=== PATIENT | female | born 1975 | race Caucasian/White ===

== ENCOUNTER 2018-01-10 11:36 | Emergency (ER) | payer MEDICAID ==
[2018-01-10] MEDS ORDERED: KETOROLAC TROMETHAMINE 60 MG/2 ML SDV IM ONE (12:33)
[2018-01-10] MEDS ORDERED: DEXAMETHASONE SOD PHOS INJ 10 MG/1 ML VIAL IM ONE (12:33)
--- NOTE | 2018-01-10 12:40 | ER Document Report ---
ED Neck/Back Problem - General Chief Complaint: Low Back Pain Stated Complaint: BACK PAIN Time Seen by Provider: 01/10/18 12:16 Mode of Arrival: Ambulatory Information source: Patient Notes: 42-year-old female presents to ED for complaint of worsening back pain. She has chronic back pain and had an epidural shot about a week and a half ago because of a herniated disc and arthritis. She states she also has a history of fibromyalgia and depression and anxiety. She states the pain in her back is been worse ever since she got the shot. She also went to her primary care doctor and got oxycodone 10 mg 15 of him on 06 January. She did not tell me that when I assessed her and found that on the pharmacy workup. She also filled her Ativan at the same time. Patient does go to pain management for her chronic back pain. He denies any new injuries. She denies any loss control of her bowel or bladder. She states she has some numbness to her buttocks and that the pain is making it so is harder for her to walk. She does have a nerve stimulator that she had on her back. TRAVEL OUTSIDE OF THE [place] IN LAST 30 DAYS: No - HPI Patient complains to provider of: Pain, Lower back Onset: Other - Chronic as for the last week and half since she got an epidural Onset: Chronic Quality of pain: Sharp, Throbbing Severity: Severe Pain Level: 5 Context: Bending, Lifting, Other Recent injury: No - Walking Associated symptoms: Like prior neck/back pain, Numbness/tingling, Radiation to leg, Lower back pain. denies: Constipation, Fever, Incontinence, Motor loss, Radiation to arm, Radiation to chest, Sensory loss, Sweaty, Unable to urinate, Upper back pain Exacerbated by: Movement of trunk, Sitting position Relieved by: Nothing Similar symptoms previously: Yes Recently seen / treated by doctor: Yes - Related Data Allergies/Adverse Reactions: aspirin Allergy (Verified 01/10/18 11:40) Penicillins Allergy (Verified 01/10/18 11:40) tramadol Allergy (Verified 01/10/18 11:40) Past Medical History - General Information source: Patient - Social History Smoking Status: Current Every Day Smoker Cigarette use (# per day): Yes - Half pack per day Chew tobacco use (# tins/day): No Smoking Education Provided: Yes Frequency of alcohol use: Rare Drug Abuse: None Occupation: None Lives with: Alone - Lives alone with her daughter Family History: Arthritis, CAD, DM, Hyperlipidemia, Hypertension, Malignancy. denies: COPD, CVA, Thyroid Disfunction Patient has suicidal ideation: No Patient has homicidal ideation: No - Past Medical History Cardiac Medical History: Reports: None Pulmonary Medical History: Reports: None EENT Medical History: Reports: None Neurological Medical History: Reports: None Endocrine Medical History: Reports: None Renal/ Medical History: Reports: None Malignancy Medical History: Reports: None GI Medical History: Reports: None Musculoskeltal Medical History: Reports Hx Arthritis, Reports Hx Musculoskeletal Deformity Skin Medical History: Reports None Psychiatric Medical History: Reports: Hx Anxiety, Hx Depression Traumatic Medical History: Reports: None Infectious Medical History: Reports: None Surgical Hx: Negative Past Surgical History: Reports: None Review of Systems - Review of Systems Constitutional: No symptoms reported EENT: No symptoms reported Cardiovascular: No symptoms reported Respiratory: No symptoms reported Gastrointestinal: No symptoms reported Genitourinary: No symptoms reported Female Genitourinary: No symptoms reported Musculoskeletal: Back pain, Muscle pain, Muscle stiffness Skin: No symptoms reported Hematologic/Lymphatic: No symptoms reported Neurological/Psychological: No symptoms reported -: Yes All other systems reviewed and negative Physical Exam - Vital signs Vitals: Temp Pulse Resp BP Pulse Ox 98.5 F 82 16 113/66 100 01/10/18 11:49 01/10/18 11:49 01/10/18 11:49 01/10/18 11:49 01/10/18 11:49 Interpretation: Normal - General General appearance: Appears well, Alert - HEENT Head: Normocephalic, Atraumatic Eyes: Normal Pupils: PERRL - Respiratory Respiratory status: No respiratory distress Chest status: Nontender Breath sounds: Normal Chest palpation: Normal - Cardiovascular Rhythm: Regular Heart sounds: Normal auscultation Murmur: No - Abdominal Inspection: Normal Distension: No distension Bowel sounds: Normal Tenderness: Nontender Organomegaly: No organomegaly - Back Back: Normal, Tender, Vertebra tenderness, Other - All puncture wound to the left side of the lumbar spine. Patient states this is where she got her epidural is not in the area where an epidural would be given. Has full sensation to her back buttocks.. No: Deformity/step-off, CVA tenderness, Scars , Scoliosis, Wounds Notes: No signs or symptoms of cauda equina, no loss control of bowel bladder, no loss of control of lower extremities. She does states she has increase in pain when she walks but she is able to walk. No saddle anesthesia, no loss of sensation to the lower extremities. She states sometimes she does have numbness and tingling to her buttocks but she is able to feel all palpation to her buttocks unable to tell whether it is sharp or dull. - Extremities General upper extremity: Normal inspection, Nontender, Normal color, Normal ROM , Normal temperature General lower extremity: Normal inspection, Nontender, Normal color, Normal ROM , Normal temperature, Normal weight bearing. No: Krystal's sign - Neurological Neuro grossly intact: Yes Cognition: Normal Orientation: AAOx4 [place] Coma Scale Eye Opening: Spontaneous [place]h Coma Scale Verbal: Oriented [place] Coma Scale Motor: Obeys Commands [place] Coma Scale Total: 15 Speech: Normal Motor strength normal: LUE, RUE, LLE, RLE Sensory: Normal - Psychological Associated symptoms: Normal affect, Normal mood - Skin Skin Temperature: Warm Skin Moisture: Dry Skin Color: Normal Course - Re-evaluation Re-evalutation: 01/10/18 12:42 Patient states she had an epidural a week and half ago. She states the pain to her back is been worse since this epidural. She is goes to pain management who is who put the epidural in her back. She states she has called pain management several times. She states the first time they told her that she needed to wait 7 days it has been a 7 days she called again and they told her they would get back with her either today or tomorrow. She went to her primary care doctor on 06 January and got 15 oxycodone 10 mg. When I first examined her she told me she was not on any narcotics and had not had any narcotics. Then after I asked her about these medications that I saw on her pharmacy she states she has but she only takes them when she absolutely has to. She is also taken Ativan for her anxiety and depression. She states she is also taken Prozac but I did not see that on her pharmacy list. I consulted Dr. Mullen for her history and physical. He came and examined her to ensure that she did not have a spinal abscess due to the epidural. Patient did not tell me ahead of time that she just had an MRI a month ago. Patient was examined by Dr. Mullen and he stated no that the chances were slumped for an abscess. Patient was treated with the Toradol and Decadron IM and will be discharged home to follow-up with her primary doctor. - Vital Signs Vital signs: Temp Pulse Resp BP Pulse Ox 98.9 F 79 16 102/52 L 97 01/10/18 12:58 01/10/18 12:58 01/10/18 12:58 01/10/18 12:58 01/10/18 12:58 Discharge - Discharge Clinical Impression: Chronic back pain greater than 3 months duration Low back pain Qualifiers: Chronicity: chronic Back pain laterality: bilateral Sciatica presence: with sciatica Sciatica laterality: bilateral sciatica Qualified Code(s): M54.42 - Lumbago with sciatica, left side Condition: Stable Disposition: HOME, SELF-CARE Additional Instructions: LOW BACK PAIN: Three out of every four people will have an episode of disabling back pain during their lifetime. Most commonly the pain is due to straining of the muscles and ligaments in the low back. Usual treatment includes: (1) Rest on a firm surface. Avoid lying on your stomach. (2) Ice pack the painful area. After a few days, gentle heat may be used intermittently to relax the area, or ice packs can be continued. (3) Medication may be needed -- muscle relaxers and antiinflammatory medicines are commonly used. (4) As the back improves, exercises are prescribed to strengthen the back and abdominal muscles. Your doctor will advise you on the proper care for your back at each stage in your recovery. You may be better in a few days -- or healing may take several weeks. If new symptoms of a "herniated disc" (radiation of pain, numbness, or tingling down the back of the leg or weakness in the leg) occur, you should be re-examined. Further testing may be necessary. Chronic Pain Control Stress, inactivity, and depression make pain more severe regardless of the cause of the pain. Stress and poor physical condition can cause pain such as headaches and backache. Relaxation: Rest in a quiet place with your eyes closed for 20 minutes twice daily. Concentrate on a pleasant image, or simply "feel" your breathing. Clear your mind. Stress management: Deal with your "stressors." Either take action, or eliminate the stressor from your life. Don't let things hang over you. Accept those things you can't change. Nutrition: Eat small, balanced meals -- don't skip, don't overeat. Meals should be high-carbohydrate, low-sugar, low-fat. Exercise: Exercise helps painful conditions and eases stress. Get 30 minutes of moderate exercise, five days a week. Do an activity that does not flare your pain. Precautions: Pain which continues to disrupt daily activities, or which changes in nature, requires a medical evaluation. Pain Clinic referral is available. We do not manage chronic pain in the Emergency Department. We will try to appropriately help you through an acute flare of your chronic painful condition , but for on-going chronic pain that does not improve, you will need to see your private doctor or friction paint machine tender. We do not provide repeated medication management of chronic painful conditions. If you wish, we can provide the name of local pain management physicians. ICE PACKS: Apply ice packs frequently against the painful area. Many different schedules are recommended, such as "20 minutes on, 20 minutes off" or "one hour ice, two hours rest." If you need to work, you may need to go longer between ice treatments. You should plan to have the area ice packed AT LEAST one fourth of the time. The ice should be applied over the wrap, tape, or splint, or over a layer of cloth -- not directly against the skin. Some ice bags have a built-in cloth and can be put directly on the skin. WARM PACKS: After approximately two days, apply gentle heat (such as a heating pad or hot water bottle) for about 20 to 30 minutes about every two hours -- at least four times daily. Warmth and elevation will help you make a more rapid recovery , and will ease the pain considerably. Do not use HOT heat, and never apply heat for longer than 30 minutes. The continuous heat can invisibly damage skin and muscles -- even when no burn is seen on the surface. Damaged muscles can make you MORE sore. Toradol Injection You have been given an injection of ketorolac tromethamine (Toradol). This is an excellent, safe drug for pain control. It also has potent antiinflammatory action. You should have significant pain relief within about one hour. Toradol is not addicting and is non-sedating. It does not interfere with driving or work. Call or return if you develop itching, hives, shortness of breath, or rash. STEROID MEDICATION: You have been given an injection of medicine of the cortisone/steroid class. This medication is used to control inflammation or allergy. It is often continued as a pill for a short period of time, until the acute process subsides. There are usually no side effects from short-term use of cortisone-like medications. Some persons feel an increased sense of well-being and are not sleepy at bedtime. Long-term use of cortisone medications is best avoided, unless required for a severe condition. If your condition does not remit, or relapses after the course of corticosteroid medication, you should consult your physician. Stretching Exercises for the Back The physician has recommended that you begin stretching exercises for your back. These are often used even while the back is painful. However, you should notify the physician if the activities seem to increase your pain. PELVIC TILT: Lie flat on your back with knees bent. Tighten your stomach and buttock muscles so it flattens your lower back against the floor. Hold 10 seconds. Repeat 10 times, twice daily. KNEE RAISE: Lying on the back with knees bent, raise one knee to your chest, then the other. Hold both knees against the chest 10 seconds, then lower one knee at a time. Repeat 10 times, twice daily. PARTIAL TRUNK RAISE: Lie face down, arms at your sides. Keeping your waist on the floor, use your arms raise your chest up. Support yourself on your elbows for 30 seconds. Repeat twice daily, increasing the time to two minutes as you recover. FOLLOW-UP CARE: If you have been referred to a physician for follow-up care, call the physician s office for an appointment as you were instructed or within the next two days. If you experience worsening or a significant change in your symptoms, notify the physician immediately or return to the Emergency Department at any time for re-evaluation. Referrals: HAMZAH WEEKS PA-C [Primary Care Provider] - Follow up tomorrow
[2018-01-10 13:00] VITALS: BP 102/52
== END 2018-01-10 13:00 | disposition home or self-care (01) ==
LOC: ER 11:36
DX: G89.29 Other chronic pain (principal); M54.42 Lumbago with sciatica, left side; M54.41 Lumbago with sciatica, right side; M19.90 Unspecified osteoarthritis, unspecified site; F32.9 Major depressive disorder, single episode, unspecified; F41.9 Anxiety disorder, unspecified; Z79.899 Other long term (current) drug therapy; Z96.89 Presence of other specified functional implants; F17.210 Nicotine dependence, cigarettes, uncomplicated; Z88.6 Allergy status to analgesic agent; Z88.0 Allergy status to penicillin; Z88.5 Allergy status to narcotic agent; Z98.890 Other specified postprocedural states
CPT/HCPCS: 99283; 96372; J1885; J1100

== ENCOUNTER 2018-04-16 18:02 | Emergency (ER) | payer MEDICAID ==
--- NOTE | 2018-04-16 18:34 | ER Document Report ---
ED Medical Screen (RME) - General Chief Complaint: Abdominal cramping/ Stated Complaint: ABDOMINAL PAIN Time Seen by Provider: 04/16/18 18:23 Notes: 43-year-old female patient, LMP 03/12/2018, had a serum hCG on 04/09/2000 1773, on 04/11/2018 of 197. Having lower abdominal discomfort. Sent here for ultrasound. I have greeted and performed a rapid initial assessment of this patient. A comprehensive ED assessment and evaluation of the patient, analysis of test results and completion of the medical decision making process will be conducted by additional ED providers. TRAVEL OUTSIDE OF THE [place] IN LAST 30 DAYS: No - Related Data Allergies/Adverse Reactions: aspirin Allergy (Verified 01/10/18 11:40) Penicillins Allergy (Verified 01/10/18 11:40) tramadol Allergy (Verified 01/10/18 11:40) Past Medical History - Social History Chew tobacco use (# tins/day): No Frequency of alcohol use: None Drug Abuse: None Renal/ Medical History: Denies: Hx Peritoneal Dialysis Musculoskeltal Medical History: Reports Hx Arthritis, Reports Hx Musculoskeletal Deformity Psychiatric Medical History: Reports: Hx Anxiety, Hx Depression Physical Exam - Vital signs Vitals: Temp Pulse Resp BP Pulse Ox 98.7 F 76 18 136/77 H 99 04/16/18 18:11 04/16/18 18:11 04/16/18 18:11 04/16/18 18:11 04/16/18 18:11 Course - Vital Signs Vital signs: Temp Pulse Resp BP Pulse Ox 98.7 F 76 18 136/77 H 99 04/16/18 18:11 04/16/18 18:11 04/16/18 18:11 04/16/18 18:11 04/16/18 18:11 Doctor's Discharge - Discharge Referrals: HAMZAH WEEKS PA-C [Primary Care Provider] - Follow up as needed
[2018-04-16 19:24] LABS: ABSOLUTE EOSINOPHILS # (AUTO) 0.2 10^3/uL (0.0-0.6); ABSOLUTE LYMPHOCYTES (AUTO) 3.1 10^3/uL (0.5-4.7); ABSOLUTE MONOCYTES (AUTO) 0.8 10^3/uL (0.1-1.4); BASOPHILS % (AUTO) 0.3 % (0-2); EOSINOPHILS % (AUTO) 1.4 % (0-6); HEMOGLOBIN 10.8 g/dL (12.0-15.5); LYMPHOCYTES % (AUTO) 27.8 % (13-45); MEAN CORPUSCULAR HEMOGLOBIN 29.3 pg (27.0-33.4); MEAN CORPUSCULAR HGB CONC 33.7 g/dL (32.0-36.0); MEAN CORPUSCULAR VOLUME 87 fl (80-97); MONOCYTES % (AUTO) 7.3 % (3-13); PLATELET COUNT 491 10^3/uL (150-450); RED BLOOD COUNT 3.68 10^6/uL (3.72-5.28); RED CELL DISTRIBUTION WIDTH 16.7 % (11.5-14.0); SEGMENTED NEUTROPHILS % (AUTO) 63.2 % (42-78); TOTAL CELLS COUNTED % (AUTO) 100 %; WHITE BLOOD COUNT 11.1 10^3/uL (4.0-10.5)
--- NOTE | 2018-04-16 20:31 | ER Document Report ---
ED General - General Chief Complaint: Abdominal cramping/ Stated Complaint: ABDOMINAL PAIN Time Seen by Provider: 04/16/18 18:23 Mode of Arrival: Ambulatory Information source: Patient Notes: 43-year-old female with depression, anxiety presents with complaint of abdominal cramping that started 3 days prior to arrival. She describes it as intermittent, located in the right and left lower quadrant. Patient had a recent positive test. She is with her last menstrual period . Patient admits to associated vaginal discharge without vaginal bleeding. She was recently seen at the health department but advised to come to the emergency department for an ultrasound. TRAVEL OUTSIDE OF THE [place] IN LAST 30 DAYS: No - HPI Onset: Other Onset/Duration: Gradual, Intermittent Quality of pain: Achy, Cramping Severity: Mild - Related Data Allergies/Adverse Reactions: aspirin Allergy (Verified 01/10/18 11:40) Penicillins Allergy (Verified 01/10/18 11:40) tramadol Allergy (Verified 01/10/18 11:40) Past Medical History - General Information source: Patient - Social History Smoking Status: Current Every Day Smoker Cigarette use (# per day): Yes - 5 Chew tobacco use (# tins/day): No Smoking Education Provided: Yes Frequency of alcohol use: None Drug Abuse: None Lives with: Family Family History: Arthritis, CAD, DM, Hyperlipidemia, Hypertension, Malignancy. denies: COPD, CVA, Thyroid Disfunction Patient has suicidal ideation: No Patient has homicidal ideation: No Renal/ Medical History: Denies: Hx Peritoneal Dialysis Musculoskeltal Medical History: Reports Hx Arthritis, Reports Hx Musculoskeletal Deformity Psychiatric Medical History: Reports: Hx Anxiety, Hx Depression Review of Systems - Review of Systems Constitutional: denies: Fever, Weakness EENT: denies: Blurred vision, Difficulty swallowing Cardiovascular: denies: Chest pain, Palpitations Respiratory: denies: Short of breath Gastrointestinal: Abdominal pain. denies: Nausea, Vomiting Genitourinary: denies: Dysuria Female Genitourinary: Last menstrual period - 03/12/18, Vaginal discharge. denies: Vaginal bleeding Musculoskeletal: denies: Muscle stiffness Skin: denies: Rash Hematologic/Lymphatic: denies: Easy bruising Neurological/Psychological: denies: Headaches -: Yes All other systems reviewed and negative Physical Exam - Vital signs Vitals: Temp Pulse Resp BP Pulse Ox 98.7 F 76 18 136/77 H 99 04/16/18 18:11 04/16/18 18:11 04/16/18 18:11 04/16/18 18:11 04/16/18 18:11 - Notes Notes: PHYSICAL EXAMINATION: GENERAL: Well-appearing, well-nourished and in no acute distress. HEAD: Atraumatic, normocephalic. EYES: Pupils equal round and reactive to light, extraocular movements intact, conjunctiva are normal. ENT: Nares patent, oropharynx clear without exudates. Moist mucous membranes. NECK: Normal range of motion, supple without lymphadenopathy LUNGS: Breath sounds clear to auscultation bilaterally and equal. No wheezes rales or rhonchi. HEART: Regular rate and rhythm without murmurs ABDOMEN: Soft, nontender, nondistended abdomen. No guarding, no rebound. No masses appreciated. Female : Thick white discharge, no vaginal bleeding, Os closed. No cervical motion tenderness. Musculoskeletal: Normal range of motion, no pitting or edema. No cyanosis. NEUROLOGICAL: Cranial nerves grossly intact. Normal speech, normal gait. Normal sensory, motor exams PSYCH: Normal mood, normal affect. SKIN: Warm, Dry, normal turgor, no rashes or lesions noted. Course - Re-evaluation Re-evalutation: Laboratory 04/16/18 04/16/18 04/16/18 19:00 19:00 20:43 WBC 11.1 H RBC 3.68 L Hgb 10.8 L Hct 32.0 L MCV 87 MCH 29.3 MCHC 33.7 RDW 16.7 H Plt Count 491 H Seg Neutrophils % 63.2 Lymphocytes % 27.8 Monocytes % 7.3 Eosinophils % 1.4 Basophils % 0.3 Absolute Neutrophils 7.0 Absolute Lymphocytes 3.1 Absolute Monocytes 0.8 Absolute Eosinophils 0.2 Absolute Basophils 0.0 Beta HCG, Quant 1863.90 H Total Beta HCG POSITIVE Urine Color YELLOW Urine Appearance SLIGHTLY-CLOUDY Urine pH 5.0 Ur Specific [place] 1.017 Urine Protein NEGATIVE Urine Glucose (UA) NEGATIVE Urine Ketones NEGATIVE Urine Blood NEGATIVE Urine Nitrite NEGATIVE Urine Bilirubin NEGATIVE Urine Urobilinogen NEGATIVE Ur Leukocyte Esterase NEGATIVE Urine WBC (Auto) 2 Urine RBC (Auto) 1 Squamous Epi Cells Auto 2 Urine Mucus (Auto) RARE Urine Ascorbic Acid NEGATIVE Trichomonas (Wet Prep) Vaginal WBC Vaginal Yeast Chlamydia DNA (PCR) N.gonorrhoeae DNA (PCR) 04/16/18 04/16/18 21:12 21:12 WBC RBC Hgb Hct MCV MCH MCHC RDW Plt Count Seg Neutrophils % Lymphocytes % Monocytes % Eosinophils % Basophils % Absolute Neutrophils Absolute Lymphocytes Absolute Monocytes Absolute Eosinophils Absolute Basophils Beta HCG, Quant Total Beta HCG Urine Color Urine Appearance Urine pH Ur Specific [place] Urine Protein Urine Glucose (UA) Urine Ketones Urine Blood Urine Nitrite Urine Bilirubin Urine Urobilinogen Ur Leukocyte Esterase Urine WBC (Auto) Urine RBC (Auto) Squamous Epi Cells Auto Urine Mucus (Auto) Urine Ascorbic Acid Trichomonas (Wet Prep) NO TRICHOMONAS SEEN Vaginal WBC RARE WBCS SEEN Vaginal Yeast NO YEAST SEEN Chlamydia DNA (PCR) NOT DETECTED N.gonorrhoeae DNA (PCR) NOT DETECTED Obstetrics Ultrasound 04/16/18 18:32 IMPRESSION: There may be an early intrauterine gestation of 5 weeks 2 days based on gestational sac size. pole was not seen. Follow-up as clinically indicated. 04/17/18 19:04 43-year-old female with depression, anxiety presents with complaint of abdominal cramping that started 3 days prior to arrival. She describes it as intermittent, located in the right and left lower quadrant. Patient had a recent positive test. She is with her last menstrual period . Patient admits to associated vaginal discharge without vaginal bleeding. She was recently seen at the health department but advised to come to the emergency department for an ultrasound. Patient was seen by myself upon arrival. Vital signs were reviewed. Patient is afebrile, normotensive and not hypoxic. Patient does not appear toxic or dehydrated. They are in no acute distress. Previous medical records and nursing notes reviewed. Patient has a normal pelvic exam without vaginal bleeding, os closed. Patient's hCG level 1863. Transvaginal ultrasound indicates a possible IUP approximately 5 weeks based on gestational sac size. Patient advised to return in 48 hours for repeat hCG level. She was urged to return sooner if she experienced worsening pain, vaginal bleeding. Patient provided the opportunity to ask questions, and express concerns. Discharge instructions discussed. Patient is agreeable with discharge home. Return indications explained and discussed with the patient who displays understanding. Patient encouraged to return to the emergency department immediately with any concerns. 04/17/18 19:10 - Vital Signs Vital signs: Temp Pulse Resp BP Pulse Ox 98.4 F 74 18 113/68 98 04/16/18 22:29 04/16/18 22:29 04/16/18 22:29 04/16/18 22:29 04/16/18 22:29 - Laboratory Result Diagrams: 04/16/18 19:00 Laboratory results interpreted by me: 04/16/18 04/16/18 19:00 19:00 WBC 11.1 H RBC 3.68 L Hgb 10.8 L Hct 32.0 L RDW 16.7 H Plt Count 491 H Beta HCG, Quant 1863.90 H - Diagnostic Test Radiology reviewed: Image reviewed, Reports reviewed Discharge - Discharge Clinical Impression: Pelvic pain affecting in first trimester, antepartum Condition: Good Disposition: HOME, SELF-CARE Instructions: Pelvic Pain in ([facility]) Additional Instructions: Please return to the emergency department for repeat hCG on April 18, 2018. Forms: Elevated Blood Pressure, Follow-Up Laboratory Testing Referrals: HAMZAH WEEKS PA-C [Primary Care Provider] - Follow up as needed
[2018-04-16] MEDS ORDERED: ENOXAPARIN SODIUM INJ 80 MG/0.8 ML DISP.SYRIN SUBCUT ONE (20:33)
--- NOTE | 2018-04-16 20:51 | RADIOLOGY REPORT (SQ) ---
EXAM DESCRIPTION: U/S OB TRANSVAGINAL W/O DOP COMPLETED DATE/TIME: 04/16/2018 8:31 pm REASON FOR STUDY: LMP 03-12-18, HCG 197 on 04-11-18, lower abdom pain COMPARISON: None. TECHNIQUE: Transvaginal static and realtime grayscale images acquired of the pelvis. Additional jonny cted spectral and color Doppler images recorded. All images stored on PACs. [facility] [place]: 5 weeks 0 days. LMP 03/12/2018 LIMITATIONS: None. FINDINGS: FETUS: Living intrauterine . ULTRASOUND EGA: 5 weeks 2 days based on gestational sac size. pole is not seen. Possible yolk sac present. ULTRASOUND RENEE: 12/15/2018 CRL: pole not seen at this time. FHR: No heart motion. Beats per minute. SUBCHORIONIC BLEED: No SIZE OF BLEED: Not applicable. UTERUS: No masses or anomalies. 11.6 x 6.2 x 6.6 cm. CERVICAL LENGTH: 3.8 cm Closed. RIGHT ADNEXA: Normal ovary with normal vascular flow. 3 x 2.6 x 2.2 cm. No adnexal free fluid. No adnexal masses. LEFT ADNEXA: Normal ovary with normal vascular flow. 3.6 x 2.3 x 2.4 cm. No adnexal free fluid. No adnexal masses. FREE FLUID: None. OTHER: No other significant finding. IMPRESSION: There may be an early intrauterine gestation of 5 weeks 2 days based on gestational sac size. pole was not seen. Follow-up as clinically indicated. TECHNICAL DOCUMENTATION: JOB ID: [id number]- All Rights Reserved Reading location - IP/workstation name: [email or web address]
[2018-04-16 21:05] LABS: APPEARANCE,URINE SLIGHTLY-CLOUDY; BILIRUBIN,URINE NEGATIVE (NEGATIVE); COLOR,URINE YELLOW; GLUCOSE, URINE NEGATIVE (NEGATIVE); KETONES,URINE NEGATIVE (NEGATIVE); LEUKOCYTE ESTERASE,URINE NEGATIVE (NEGATIVE); NITRITE,URINE NEGATIVE (NEGATIVE); PROTEIN,URINE NEGATIVE (NEGATIVE); URINE SPECIFIC GRAVITY 1.017; UROBILINOGEN,URINE NEGATIVE mg/dL (<2.0)
[2018-04-16 21:32] LABS: T.VAGINALIS (WET MOUNT) NO TRICHOMONAS SEEN; WBCS (WET MOUNT) RARE WBCS SEEN; YEAST (WET MOUNT) NO YEAST SEEN
[2018-04-16 22:41] VITALS: BP 113/68
[2018-04-16 22:56] LABS: CHLAM PCR NOT DETECTED (NOT DETECT); GON PCR NOT DETECTED (NOT DETECT)
== END 2018-04-16 22:31 | disposition home or self-care (01) ==
LOC: ER 18:02
DX: O26.891 Other specified pregnancy related conditions, first trimester (principal); R10.2 Pelvic and perineal pain; R10.31 Right lower quadrant pain; R10.32 Left lower quadrant pain; N89.8 Other specified noninflammatory disorders of vagina; O99.331 Smoking (tobacco) complicating pregnancy, first trimester; F17.210 Nicotine dependence, cigarettes, uncomplicated; Z3A.01 Less than 8 weeks gestation of pregnancy; Z88.6 Allergy status to analgesic agent; Z88.0 Allergy status to penicillin; Z88.5 Allergy status to narcotic agent
CPT/HCPCS: 36415; 76817; 81001; 84702; 85025; 87210; 87491; 87591; 99284

== ENCOUNTER 2018-05-10 10:46 | Day surgery (SDC) | payer MEDICAID ==
[2018-05-10 11:32] LABS: HEMATOCRIT 31.3 % (36.0-47.0); HEMOGLOBIN 10.5 g/dL (12.0-15.5); MEAN CORPUSCULAR HEMOGLOBIN 29.8 pg (27.0-33.4); MEAN CORPUSCULAR HGB CONC 33.7 g/dL (32.0-36.0); MEAN CORPUSCULAR VOLUME 89 fl (80-97); PLATELET COUNT 398 10^3/uL (150-450); RED BLOOD COUNT 3.53 10^6/uL (3.72-5.28); RED CELL DISTRIBUTION WIDTH 17.5 % (11.5-14.0); WHITE BLOOD COUNT 7.7 10^3/uL (4.0-10.5)
[2018-05-10 11:38] LABS: APPEARANCE,URINE SLIGHTLY-CLOUDY; BILIRUBIN,URINE NEGATIVE (NEGATIVE); COLOR,URINE YELLOW; GLUCOSE, URINE NEGATIVE (NEGATIVE); KETONES,URINE NEGATIVE (NEGATIVE); LEUKOCYTE ESTERASE,URINE NEGATIVE (NEGATIVE); NITRITE,URINE NEGATIVE (NEGATIVE); PROTEIN,URINE NEGATIVE (NEGATIVE); URINE SPECIFIC GRAVITY 1.017
[2018-05-10] MEDS ORDERED: LIDOCAINE 2% INJ-PF (20 MG/ML) 10 ML AMPUL ONE (12:46)
[2018-05-10] MEDS ORDERED: PROPOFOL INJ 200 MG/20 ML VIAL IV ONE (12:47)
[2018-05-10] MEDS ORDERED: HYDROMORPHONE HCL INJ/PF 2 MG/ML AMPULE ONE (12:47)
[2018-05-10] MEDS ORDERED: DEXAMETHASONE SOD PHOSPHATE INJ 4 MG/1 ML VIAL ONE (12:47)
[2018-05-10] MEDS ORDERED: MIDAZOLAM 2 MG/2 ML INJ ONE (12:47)
[2018-05-10] MEDS ORDERED: ONDANSETRON HCL INJ/PF 4 MG/2 ML SDV ONE (12:48)
[2018-05-10] MEDS ORDERED: FENTANYL CITRATE INJ/PF 100 MCG/2 ML AMPUL IV PRN ×3 (13:15)
[2018-05-10] MEDS ORDERED: MEPERIDINE HCL/PF INJ 25 MG/1 ML DISP.SYRIN IV PRN (13:15)
[2018-05-10] MEDS ORDERED: DIPHENHYDRAMINE HCL 50 MG/ML VIAL IV PRN (13:15)
[2018-05-10] MEDS ORDERED: PROMETHAZINE HCL INJ 25 MG/1 ML VIAL IV PRN ×2 (13:15)
[2018-05-10] MEDS ORDERED: SUCCINYLCHOLINE CHLORIDE INJ 200 MG/10 ML VIAL ONE (13:23)
[2018-05-10] MEDS ORDERED: IBUPROFEN 800 MG TABLET ONE (14:05)
[2018-05-10 15:21] VITALS: BP 103/69
--- NOTE | 2018-05-10 16:09 | OPERATIVE REPORT E ---
Operative Report NAME: CECILIA ARAGON : 1975 AGE: 43Y DATE OF SURGERY: 05/10/2018 ROOM: PREOPERATIVE DIAGNOSIS: MISSED AB. POSTOPERATIVE DIAGNOSIS: MISSED AB. OPERATION: Suction D and C. ESTIMATED BLOOD LOSS: Less than 25 mL. TISSUE REMOVED: Products of conception. SURGEON: Rand TODD M.D. ANESTHESIA: LBAC. PROCEDURE: The patient was placed in the dorsal lithotomy position, prepped and draped in sterile fashion. Speculum was placed *------* to a depth of 11 cm. The os was dilated to admit the #8 suction catheter. Suction curettage was performed followed by sharp curettage, followed by repeat suction. There was a moderate amount of tissue being recovered. Single tooth tenaculum was removed and the procedure terminated. She was taken to the recovery room in good condition. DICTATING PHYSICIAN: Rand OTDD M.D. [id number] PHY#: [id number] ID: [id number] JOB#: [id number] ACCT: [id number] cc:Rand TODD M.D. >
== END 2018-05-10 14:50 | disposition home or self-care (01) ==
LOC: OROUT 10:46
PROVIDERS: ATTEND Obstetrics & Gynecology Gynecology
DX: O02.1 Missed abortion (principal); F17.210 Nicotine dependence, cigarettes, uncomplicated; D64.9 Anemia, unspecified; F41.9 Anxiety disorder, unspecified; Z88.0 Allergy status to penicillin; Z88.5 Allergy status to narcotic agent; Z88.6 Allergy status to analgesic agent
CPT/HCPCS: 36415; 85027; 81001; 88304 ×2; 59820; J2250; J3490 ×2; J1100; J1170; J0330; J2405; J2704; 1965

== ENCOUNTER 2019-02-20 00:25 | Emergency (ER) | payer SELFPAY ==
--- NOTE | 2019-02-20 06:36 | ER Document Report ---
ED General - General Chief Complaint: Pedal Edema Stated Complaint: LEGS/FEET SWELLING Time Seen by Provider: 02/20/19 06:32 Primary Care Provider: HAMZAH WEEKS PA-C [Primary Care Provider] - Follow up in 3-5 days Notes: Patient is a 43-year-old female who presents the emergency department with a chief complaint of bilateral lower extremity edema. She states that her symptoms started 2 days ago. States that her left leg started swelling before her right did. She states that in October she also had over, but was not checked out after she fell. Yesterday she noticed that her right foot was swelling more. She states that it is hard to walk, but she is able to. She also states that she almost felt like she was going to pass out. Patient saw her primary care provider during the daytime and was told that she needed to elevate her legs. Her primary care provider also suggested she wear compression hose, but she has not bought them yet. States that her pain started in her feet and as her swelling has progressed, the pain has moved to calves. She does have complaints of shortness of breath. She is a current everyday smoker. Past medical history includes migraines, cervical cancer with no treatment, PTSD, anxiety, depression, and ADD. She does take medication for her psych issues, but no other medicines. She does have a family history of congestive heart failure. TRAVEL OUTSIDE OF THE [place] IN LAST 30 DAYS: No - Related Data Allergies/Adverse Reactions: aspirin Allergy (Verified 01/10/18 11:40) Penicillins Allergy (Verified 01/10/18 11:40) tramadol Allergy (Verified 01/10/18 11:40) Past Medical History - General Information source: Patient - Social History Smoking Status: Current Every Day Smoker Chew tobacco use (# tins/day): No Frequency of alcohol use: Rare Drug Abuse: None Family History: Arthritis, CAD, DM, Hyperlipidemia, Hypertension, Malignancy. denies: COPD, CVA, Thyroid Disfunction Patient has suicidal ideation: No Patient has homicidal ideation: No - Past Medical History Cardiac Medical History: Reports: Hx Hypercholesterolemia Denies: Hx Coronary Artery Disease, Hx Heart Attack, Hx Hypertension Pulmonary Medical History: Denies: Hx Asthma, Hx Bronchitis, Hx COPD, Hx Pneumonia Neurological Medical History: Reports: Hx Seizures. Denies: Hx Cerebrovascular Accident Renal/ Medical History: Denies: Hx Peritoneal Dialysis Musculoskeletal Medical History: Denies Hx Arthritis, Reports Hx Musculoskeletal Deformity Psychiatric Medical History: Reports: Hx Anxiety, Hx Depression Past Surgical History: Reports: Hx Gynecologic Surgery - Immunizations Hx Diphtheria, Pertussis, Tetanus Vaccination: Yes Review of Systems - Review of Systems Notes: REVIEW OF SYSTEMS: CONSTITUTIONAL : Denies recent illness. Denies recent unintentional weight loss. Denies fever, chills, or sweats. EENT: Denies eye, ear, throat, or mouth pain, discharge, or symptoms. Denies nasal or sinus congestion. CARDIOVASCULAR: Denies chest pain. RESPIRATORY: See HPI GASTROINTESTINAL: Denies nausea, vomiting, and diarrhea. Denies abdominal pain. Denies constipation. GENITOURINARY: Denies difficulty urinating, burning, blood in urine, urgency or frequency. MUSCULOSKELETAL: See HPI SKIN: Denies rash, itchiness, or lesions HEMATOLOGIC : Denies easy bruising or bleeding. LYMPHATIC: Denies swollen, painful, enlarged glands. NEUROLOGICAL: Denies no numbness or tingling denies weakness. Denies headache. Denies altered mental status. Denies alteration in speech. PSYCHIATRIC: Denies stress, anxiety, alteration in sleep patterns, or depre ssion. All other systems reviewed and negative. Physical Exam - Vital signs Vitals: Temp Pulse Resp BP Pulse Ox 97.6 F 78 20 120/71 96 02/20/19 01:05 02/20/19 01:05 02/20/19 01:05 02/20/19 01:05 02/20/19 01:05 - Notes Notes: PHYSICAL EXAMINATION: GENERAL: Appears well, healthy, well-nourished, no acute distress. HEAD: Normocephalic, atraumatic. EYES: PERRL, conjunctiva normal, all extraocular movements intact, sclera nonicteric ENT: Moist mucous membranes. NECK: Supple, no noticeable swelling, redness, rash. Normal range of motion. LUNGS: Equal breath sounds bilaterally and clear to auscultation. No wheezes rales or rhonchi. CARDIOVASCULAR: S1-S2, regular rate, regular rhythm. Radial pulses 2+, normal. ABDOMEN: Normoactive bowel sounds. Soft, nontender, no guarding, no rebound tenderness, and no masses palpated. EXTREMITIES: 2+ Pitting edema noted to bilateral lower extremities. No cyanosis. NEUROLOGICAL: Moves all extremities upon command. Strength 5/5 in all extremities. PSYCH: Normal mood, normal affect. SKIN: Warm, dry. No rash, lesions, ulcerations noted. Normal skin turgor. Course - Re-evaluation Re-evalutation: 02/20/19 05:00 Lab orders were placed via fax due to [employer] downtime. CBC, CMP, chest x-ray, and BNP were ordered. 02/20/19 07:30 Labs are still not back, I personally called the lab and asked them if the labs have resulted. They have told me that the orders were not put in. I told them that they were faxed at 5:00 in the morning. I will reorder labs. At this time, I do not suspect a DVT, as the patient's edema is bilateral. 02/20/19 09:00 Patient's BNP normal, ruling out congestive heart failure. Patient's chemistry is unremarkable. Hematology shows a hemoglobin of 11. She was anemic at her last visit. Other hematology is normal. No leukocytosis noted. I do not suspect acute life-threatening etiology at this time. I suspect the patient has peripheral edema, but the cause is unknown. She will be provided compression hose and I will prescribe her some Lasix. She will follow-up with her primary care provider in regard to this visit. She is in agreement with this plan. Verbal discharge instructions were given to the patient. They verbalized understanding. They are stable for discharge. - Vital Signs Vital signs: Temp Pulse Resp BP Pulse Ox 97.6 F 78 17 100/64 100 02/20/19 01:05 02/20/19 01:05 02/20/19 08:26 02/20/19 09:29 02/20/19 09:29 - Laboratory Result Diagrams: 02/20/19 03:34 02/20/19 03:34 Laboratory results interpreted by me: 02/20/19 02/20/19 03:34 03:34 Hgb 11.0 L Hct 34.0 L RDW 16.2 H Total Protein 5.9 L Albumin 3.2 L Discharge - Discharge Clinical Impression: Peripheral edema Condition: Stable Disposition: HOME, SELF-CARE Additional Instructions: You were seen today in the emergency department for swelling in both of your feet. You have been prescribed Lasix, medication to help with the swelling in your feet. Please take as prescribed. Please get up slowly when you take this medication. This medication will also make you urinate a lot. Please follow-up with your primary care provider in regards to this visit. Prescriptions: Furosemide [Lasix 20 mg Tablet] 20 mg PO QAM #5 tablet Referrals: HAMZAH WEEKS PA-C [Primary Care Provider] - Follow up in 3-5 days
--- NOTE | 2019-02-20 07:47 | RADIOLOGY REPORT (SQ) ---
Chest single view on 02/20/2019 at 5:33 AM CLINICAL INDICATION: Shortness of breath COMPARISON: None FINDINGS: There is minimal linear atelectasis or scarring in the right lung base. The lungs are otherwise clear. Cardiac, hilar and mediastinal contours are within normal limits. Pulmonary vascularity is within normal limits. IMPRESSION: No acute disease.
[2019-02-20] MEDS ORDERED: KETOROLAC TROMETHAMINE INJ/PF 30 MG/1 ML SDV IV ONE (08:25)
[2019-02-20 08:31] LABS: ABSOLUTE EOSINOPHILS # (AUTO) 0.3 10^3/uL (0.0-0.6); ABSOLUTE LYMPHOCYTES (AUTO) 2.2 10^3/uL (0.5-4.7); ABSOLUTE MONOCYTES (AUTO) 0.5 10^3/uL (0.1-1.4); ABSOLUTE NEUT (AUTO) 4.1 10^3/uL (1.7-8.2); BASOPHILS % (AUTO) 0.6 % (0-2); EOSINOPHILS % (AUTO) 3.9 % (0-6); MEAN CORPUSCULAR HEMOGLOBIN 28.7 pg (27.0-33.4); MEAN CORPUSCULAR HGB CONC 32.4 g/dL (32.0-36.0); MEAN CORPUSCULAR VOLUME 88 fl (80-97); MONOCYTES % (AUTO) 7.6 % (3-13); PLATELET COUNT 447 10^3/uL (150-450); RED BLOOD COUNT 3.85 10^6/uL (3.72-5.28); RED CELL DISTRIBUTION WIDTH 16.2 % (11.5-14.0); SEGMENTED NEUTROPHILS % (AUTO) 56.9 % (42-78); TOTAL CELLS COUNTED % (AUTO) 100 %; WHITE BLOOD COUNT 7.2 10^3/uL (4.0-10.5)
[2019-02-20 08:33] LABS: ALANINE AMINOTRANSFERASE 21 U/L (9-52); ALBUMIN 3.2 g/dL (3.5-5.0); ALKALINE PHOSPHATASE 75 U/L (38-126); ANION GAP 6 (5-19); ASPARTATE AMINO TRANSFERASE 20 U/L (14-36); BILIRUBIN,DIRECT 0.2 mg/dL (0.0-0.4); BILIRUBIN,TOTAL 0.4 mg/dL (0.2-1.3); BLOOD UREA NITROGEN 8 mg/dL (7-20); CALCIUM 8.9 mg/dL (8.4-10.2); CARBON DIOXIDE 30 mmol/L (22-30); CHLORIDE 107 mmol/L (98-107); CREATINE KINASE 77 U/L (30-135); GLUCOSE 88 mg/dL (75-110); SODIUM 143.1 mmol/L (137-145); TOTAL PROTEIN 5.9 g/dL (6.3-8.2)
[2019-02-20 08:44] LABS: NT PRO BNP 49 pg/mL (<125); TROPONIN I < 0.012 ng/mL
[2019-02-20 09:01] LABS: AMORPHOUS SEDIMENT,URINE TRACE /HPF; APPEARANCE,URINE TURBID; BILIRUBIN,URINE NEGATIVE (NEGATIVE); COLOR,URINE YELLOW; GLUCOSE, URINE NEGATIVE (NEGATIVE); KETONES,URINE NEGATIVE (NEGATIVE); LEUKOCYTE ESTERASE,URINE NEGATIVE (NEGATIVE); NITRITE,URINE NEGATIVE (NEGATIVE); PROTEIN,URINE NEGATIVE (NEGATIVE); URINE SPECIFIC GRAVITY 1.016; UROBILINOGEN,URINE NEGATIVE mg/dL (<2.0)
[2019-02-20 09:48] VITALS: BP 100/64
== END 2019-02-20 09:53 | disposition home or self-care (01) ==
LOC: ER 00:25
DX: R60.0 Localized edema (principal); F17.200 Nicotine dependence, unspecified, uncomplicated
CPT/HCPCS: 99285; 96374; 36415; 82553; 82550; 85025; 80053; 81001; 84484; 83880; 71045; J1885